=== PATIENT | female | born 1945 | race Caucasian/White ===

== ENCOUNTER 2019-10-19 15:15 | Emergency (ER) | payer MEDICARE, BC, MEDICAID ==
[~2019-10-19] VITALS: Ht 157.5 cm; Wt 86.4 kg
[~2019-10-19 15:15] MED LIST: CHOL200041 PO; IBUP-1984 PO; PREVCR VG
[2019-10-19 15:22] VITALS: BP 206/72
[2019-10-19] MEDS ORDERED: methylPREDNISolone sod succ 125mg/2ml vial IM ONE (15:35)
[2019-10-19] MEDS ORDERED: METH4TAB81 PO (15:44)
== END 2019-10-19 16:19 | disposition home or self-care (01) ==
LOC: ER 15:16
DX: M25.531 Pain in right wrist (principal); G35 Multiple sclerosis; I10 Essential (primary) hypertension; E11.9 Type 2 diabetes mellitus without complications; M19.90 Unspecified osteoarthritis, unspecified site; Z90.49 Acquired absence of other specified parts of digestive tract; Z90.710 Acquired absence of both cervix and uterus; Z98.890 Other specified postprocedural states; Z88.5 Allergy status to narcotic agent; Z79.899 Other long term (current) drug therapy
CPT/HCPCS: 96372; 99283; J2930